=== PATIENT | male | born 1975 | race Caucasian/White ===

== ENCOUNTER 2016-08-08 11:18 | Emergency (ER) | payer OTHER ==
[2016-08-08 11:26] VITALS: BP 123/80; PULSE 60; RESP 16; TEMP 98.2; O2SAT 95
--- NOTE | 2016-08-08 13:20 | EDPHY ---
H & P Stated Complaint: poss rib fx - Personal History Current Tetanus Diphtheria and Acellular Pertussis (TDAP): Yes - Medical/Surgical History Hx Asthma: Yes Hx Chronic Respiratory Disease: No Hx Diabetes: No Hx Cardiac Disease: No Hx Renal Disease: No Hx Cirrhosis: No Hx Alcoholism: No Hx HIV/AIDS: No Hx Splenectomy or Spleen Trauma: No Other PMH: ACL reconstruction B knees, TBI 2007, - Social History Smoking Status: Never smoked Time Seen by Provider: 08/08/16 11:44 HPI/ROS: Chief complaint: Right chest wall pain History of present illness: This is a 41-year-old male who presents to the emergency department for right sided chest wall pain. Yesterday while skiing he fell striking his right chest wall against the ground. Since then there has been soreness. There is associated pain in his right shoulder. The pain is worse with movement, better with rest. Patient denies other associated signs or symptoms including no open wounds, no cough or difficulty breathing. He denies trauma to the rest of the body including the head, neck, back, abdomen, pelvis or extremities. No neurologic symptoms such as paresthesias, weakness or paralysis. No open wound. (Babak Lawson) - Physical Exam Exam: General Appearance: Alert, nontoxic Eyes: PERRLA Respiratory: Lungs clear to auscultation bilaterally Cardiovascular: Regular rate and rhythm. Radial pulses 2+. Gastrointestinal: Bowel sounds normal. Abdomen soft, nondistended, nontender. Neurological: Alert and oriented x4. Strength and sensation intact and symmetrical. Skin: No lesions consistent with trauma to the chest wall. Musculoskeletal: Head is normocephalic, atraumatic. Spine is nontender to palpation along its entire length. Chest wall is intact palpation. Mild tenderness diffusely over the right anterior lateral aspect of the chest. No crepitus or subcutaneous air. Patient moving all extremities without difficulty. (Babak Lawson) Constitutional: Initial Vital Signs Temperature (C) 36.8 C 08/08/16 11:22 Heart Rate 60 08/08/16 11:22 Respiratory Rate 16 08/08/16 11:22 Blood Pressure 123/80 H 08/08/16 11:22 O2 Sat (%) 95 08/08/16 11:22 O2 Delivery Mode Room Air Allergies/Adverse Reactions: No Known Drug Allergies Allergy (Verified 08/08/16 11:26) Medical Decision Making ED Course/Re-evaluation: Patient seen under the supervision of my secondary supervising physician Dr. Inessa Alfonso. Patient presents to the emergency department after falling while skiing yesterday. He has pain to the right anterior chest wall and shoulder. By history and physical exam no evidence of trauma to other parts of the body. X-rays are unremarkable. Patient will be discharged home. Home care is discussed. He is asked to follow up with the primary care doctor for recheck. Return precautions are given. Patient voiced understanding and agreement with plan. (Babak Lawson) Differential Diagnosis: Included but not limited to contusion, sprain or strain, bony fracture, joint dislocation, intrathoracic injury (Babak Lawson) Other Provider: The patient was evaluated and managed by the Physician Security Installer/ Nurse Practitioner. My co-signature indicates that I have reviewed this chart and I agree with the findings and plan of care as documented. I am the secondary supervising physician. (Inessa Alfonso) Departure - Departure Disposition: Home, Routine, Self-Care Clinical Impression: Chest wall contusion Condition: Good Instructions: Contusion in Adults (ED) Additional Instructions: Follow-up with your primary care doctor for recheck If symptoms worsen or new symptoms develop return to the emergency room for recheck Referrals: JUHI MCKINNEY [Primary Care Provider] - As per Instructions
== END 2016-08-08 13:32 | disposition home or self-care (01) ==
DX: S20.211A Contusion of right front wall of thorax, initial encounter (principal); J45.909 Unspecified asthma, uncomplicated; W18.09XA Striking against other object with subsequent fall, initial encounter

== ENCOUNTER 2016-12-01 10:24 | Day surgery (SDC) | payer OTHER ==
[2016-12-01] MEDS ORDERED: ceFAZolin 2 GM/DEXTROSE 100 ML IV ONE (10:33)
[2016-12-01] MEDS ORDERED: BACITRACIN 50,000 UNITS/10 ML SYR IRR ONE (10:38)
[2016-12-01] MEDS ORDERED: ROPIVACAINE HCL 20 MG/10 ML INJ EP ONE (10:38)
[2016-12-01] MEDS ORDERED: BUPIVACAINE 0.5% 30 ML SDV ONE (10:38)
[2016-12-01] MEDS ORDERED: LIDOCAINE 1% 300 MG/30 ML SDV ONE (10:38)
[2016-12-01] MEDS ORDERED: LR 1,000 ML IV ONE (10:41)
--- NOTE | 2016-12-01 11:25 | PDANEPAE ---
ANE History of Present Illness 41 yo male, fairly healthy, for R toe surgery. ANE Past Medical History - Cardiovascular History Hx Hypertension: No Hx Arrhythmias: No Hx Chest Pain: No Hx Coronary Artery / Peripheral Vascular Disease: No Hx CHF / Valvular Disease: No Hx Palpitations: No - Pulmonary History Hx COPD: No Hx Asthma/Reactive Airway Disease: No Hx Recent Upper Respiratory Infection: No Hx Oxygen in Use at Home: No Hx Sleep Apnea: No Sleep Apnea Screening Result - Last Documented: Negative - Neurologic History Hx Cerebrovascular Accident: No Hx Seizures: No Hx Dementia: No - Endocrine History Hx Diabetes: No - Renal History Hx Renal Disorders: No - Liver History Hx Hepatic Disorders: No - Neurological & Psychiatric Hx Hx Neurological and Psychiatric Disorders: No Neurological / Psychiatric History Comment: TRAUMATIC BRAIN INJURY WITHOUT RESIDUAL EFFECT - Cancer History Hx Cancer: No - Congenital Disorder History Hx Congenital Disorders: No - GI History Hx Gastrointestinal Disorders: No - Chronic Pain History Chronic Pain: No - Surgical History Prior Surgeries: LUMBAR LAMINECTOMY. CHERYL KNEE ACL ANE Review of Systems Review of Systems: Scratchy throat about 10 days ago, resolved. No other symptoms of URI, no fevers. - Systems Cardiac: Reports: no symptoms Respiratory: Reports: no symptoms Neurological: Reports: no symptoms ANE Patient History - Allergies Allergies/Adverse Reactions: No Known Drug Allergies Allergy (Verified 08/08/16 11:26) - Home Medications Home medications: home medication list seen and reviewed Home Medications: Herbal Drugs DAILY 11/25/16 [Last Taken 11/28/16 08:00] - NPO status NPO Since - Liquids (Date): 12/01/16 NPO Since - Liquids (Time): 09:00 NPO Since - Solids (Date): 11/30/16 NPO Since - Solids (Time): 20:30 - Anes Hx Anes Hx: no prior problems - Smoking Hx Smoking Status: Never smoked Marijuana use: No - Alcohol Use Alcohol Use: Occasionally (2/d) - Family Anes Hx Family Anes Hx: none ANE Labs/Vital Signs - Vital Signs Blood Pressure: 126/88 Heart Rate: 62 Respiratory Rate: 18 O2 Sat (%): 94 Height: 180.34 cm Weight: 88.451 kg ANE Physical Exam - Airway Neck exam: FROM Mallampati Score: Class 2 Mouth exam: normal dental/mouth exam - Pulmonary Pulmonary: clear to auscultation - Cardiovascular Cardiovascular: regular rate and rhythym - ASA Status ASA Status: II ANE Anesthesia Plan Anesthesia Plan: GA with mask Total IV Anesthesia: Yes
--- NOTE | 2016-12-01 11:30 | PDHPUP ---
History & Physical Update H&P update statement: This history and physical update is based on an assessment of the patient which was completed after admission or registration (within 24 hours), but prior to the surgery/procedure.
[2016-12-01] MEDS ORDERED: PROPOFOL/EMULSION 500 MG/50 ML BOTTLE IV ONE (11:32)
[2016-12-01] MEDS ORDERED: fentaNYL 100 MCG/2 ML INJ ONE (11:32)
[2016-12-01] MEDS ORDERED: LIDOCAINE 2% 5 ML SDV ONE (11:34)
[2016-12-01] MEDS ORDERED: DEXAMETHASONE 4 MG/ML VIAL ONE (11:34)
[2016-12-01] MEDS ORDERED: PROPOFOL 200 MG/20 ML VIAL ONE (12:12)
[2016-12-01] MEDS ORDERED: KETOROLAC 30 MG/1 ML SDV ONE (12:35)
[2016-12-01] MEDS ORDERED: ACETAMINOPHEN 500 MG TAB PO PRN (12:39)
[2016-12-01] MEDS ORDERED: NALOXONE HCL 0.4 MG/ML INJ IVP PRN (12:39)
[2016-12-01] MEDS ORDERED: HYDROCODONE/APAP 5/325 TAB PO PRN (12:39)
[2016-12-01] MEDS ORDERED: PROMETHAZINE HCL 25 MG/ML INJ IVP PRN (12:39)
[2016-12-01] MEDS ORDERED: D5W LR 500 ML IV PRN (12:39)
[2016-12-01] MEDS ORDERED: fentaNYL 100 MCG/2 ML INJ IVP PRN (12:39)
[2016-12-01 13:52] VITALS: BP 112/72
[2016-12-01 14:36] VITALS: PULSE 63; RESP 16; TEMP 97.7; O2SAT 92
--- NOTE | 2016-12-02 03:19 | GOP ---
[f rep st] OPERATIVE REPORT DATE OF OPERATION: 12/01/2016 SURGEON: Lynette Marshall DPM ANESTHESIA: IV sedation with local. ANESTHESIOLOGIST: Shruthi David MD PREOPERATIVE DIAGNOSIS: Exostosis right hallux. POSTOPERATIVE DIAGNOSIS: Exostosis right hallux. PROCEDURE PERFORMED: Exostectomy procedure to the distal and proximal phalanx of the right hallux. FINDINGS: DESCRIPTION OF PROCEDURE: Patient presented to the hospital approximately an hour and a half prior to foot surgery after having been n.p.o. past midnight. The patient's preoperative history and phys ical and all lab studies were reviewed and there were no contraindications to the proposed procedure . Patient received Ancef 2 g IV 0.5 hour prior to foot surgery. Patient was taken to the OR room and placed on the OR table in a supine position where the appropria te anesthetic agents were administered. This was supplemented with a local block performed to the 1 st ray, right foot in a Christine block fashion utilizing a total of 6 cc of 1% lidocaine plain and 8 cc of plain 0.2% Naropin. The right lower extremity was then prepped and draped in usual aseptic fashi on covered with a sterile stockinette. Utilizing elevation overlying Esmarch bandage, the right luisa t was exsanguinated and the tourniquet inflated to a pressure of 220 mmHg. The foot was then lowere d to the orthopedic table. Attention was then directed to the dorsal medial aspect of the interphalangeal joint, right hallux, where an approximate 3.5 cm linear longitudinal incision was made overlying the exostosis. The inci pawan was deepened through the subcutaneous tissues to the level of the periosteal and capsular tissu es taking care to preserve neurovascular structures. Any bleeders were clamped and cauterized as ne eded. There was significant scar tissue to the subcutaneous tissue. A linear capsular and perioste al incision was made, in the same plane as the skin incision and the periosteum and capsular tissues were reflected off the dorsal medial, medial, and medial plantar aspects of the head of the proxima l phalanx and base of the distal phalanx. Utilizing the sagittal saw, the prominent bone that prese nted was resected and placed on the back table. Any prominent bony borders were remodeled to a smoo th surface utilizing the powered rasp. Surgical site was copiously irrigated with sterile saline ba citracin solution. The capsule and periosteal tissue were reapproximated with 2-0 Vicryl. The tour niquet was released. There was immediate capillary refill to all digits and there was hemostasis. Subcutaneous tissues reapproximated with 4-0 Vicryl. The skin was reapproximated with 4-0 Prolene u tilizing interrupted horizontal mattress sutures. A mildly compressive dry sterile gauze dressing w as applied with Xeroform, 4 x 4 gauze, Cathy, and an Romeo wrap. Patient tolerated the procedure and anesthesia well and was transferred to the recovery room with vi darinel signs stable and vascular status intact to the right lower extremity. In the recovery room the patient received postoperative oral and written home care instructions. He was dispensed a cryo cuf f and instructed on its usage. He was fitted and dispensed a Darco shoe to wear at all times when w eightbearing. He is permitted to bear full weight. However, he is to rest and elevate the extremit y for the first 48 hours. Prescriptions have been given for Percocet to take postoperatively as pre scribed for pain. He is scheduled to follow up in the office in 2 days for evaluation but to call t he office sooner if any questions or problems arise. /[id number]/MODL
== END 2016-12-01 14:15 | disposition home or self-care (01) ==
LOC: FSGY 10:24
PROVIDERS: ATTEND Podiatrist
PROC: 0QBQ0ZZ Excision of Right Toe Phalanx, Open Approach (ICD-10-PCS; principal; 2016-12-01 11:45)
DX: M20.11 Hallux valgus (acquired), right foot (principal); M77.9 Enthesopathy, unspecified
CPT/HCPCS: J0690; J1100; J1885; J2704; J2795; J3010